=== PATIENT | male | born 2005 | race Caucasian/White ===

== ENCOUNTER 2024-08-23 21:16 | Emergency (ER) | payer BC ==
[2024-08-23] MEDS: Ondansetron 4 MG Tab.DIS PO ONE (22:10)
== END 2024-08-24 00:30 | disposition home or self-care (01) ==
LOC: MW.ED 21:16
DX: J06.9 Acute upper respiratory infection, unspecified (principal); B97.89 Other viral agents as the cause of diseases classified elsewhere; K41.90 Unilateral femoral hernia, without obstruction or gangrene, not specified as recurrent; R11.2 Nausea with vomiting, unspecified; R19.7 Diarrhea, unspecified; Z75.8 Other problems related to medical facilities and other health care
CPT/HCPCS: 87428; 99284; A9270